=== PATIENT | female | born 1965 | race Caucasian/White ===

== ENCOUNTER 2016-09-18 10:49 | Emergency (ER) | payer BC ==
[~2016-09-18] VITALS: Ht 160 cm; Wt 75.3 kg
[2016-09-18 11:00] VITALS: TEMP 98.5; Ht 160 cm; Wt 75.3 kg
[2016-09-18] MEDS ORDERED: FLUO-137 PO (11:10)
[2016-09-18] MEDS ORDERED: IBUP-1724 PO (11:10)
[2016-09-18] MEDS ORDERED: [UNRECOGNIZED DRUG - CODE] PO (11:17)
[2016-09-18] MEDS ORDERED: hormone replacement PO (11:24)
--- NOTE | 2016-09-18 11:46 | ERPDOC ---
Departure Disposition Decision Date: Sep 18, 2016 Disposition Decision Time: 12:37 Disposition: 01 DISCHARGED HOME, SELF-CARE Impression Impression Impression: Primary Impression: Concussion Encounter type: initial encounter Loss of consciousness presence/duration: without LOC Qualified Codes: S06.0X0A - Concussion without loss of consciousness, initial encounter Severity: Moderate Condition: Stable Seen By: Physician only Referrals: (Family) Patient Instructions: Concussion (ED) Problems/Meds/Labs Reviewed?: Yes Medications reviewed and manag: Yes Departure Forms: Return to Work/School Permit Return to Work/School Date: Sep 19, 2016 Follow up care ordered?: Yes Mental Status: Alert, Oriented HPI - Fall/Injury General Chief Complaint: Fall Stated Complaint: PT FELL OFF HORSE, HEAD TRAUMA Time Seen by Provider: 11:46 Source: patient, family Exam Limitations: no limitations HPI - Fall/Injury Initial Comments Patient is a 51-year-old female presents emergency primary for evaluation of dizziness, fall off a horse. Patient this weekend was riding a horse on Saturday , strep was loose patient lost the stirrups and slid sideways off the horse landing on the top of her head. Patient had possible loss of consciousness was altered afterwards however did improve. Patient has been doing well no headache , however today developed significant dizziness at work, family became concerned so brought patient to the ER for evaluation. Patient's currently having no nausea no vomiting no headache no vision changes. Occurred At: home Onset: Rapid Duration: other (3 days) Pain Scale: Now & Worst: 0/10 Injuries/Pain Location: head Context: lost balance Loss of Consciousness: brief (seconds) Allergies: Coded Allergies: No Known Allergies (Unverified , 09/18/16) Past History Past Medical History Pt denies signifigant H Surgical History Reproductive/: Social History Smoking Status: Never smoker Substance Use Type: does not use Alcohol Intake: none Review of Systems Constitutional Constitutional: dizziness, DENIES: appetite decrease, chills, fever, weakness Eyes Vision: DENIES: blurring, double vision, loss of visual calvillo ENMT Sinuses: DENIES: congestion, rhinorrhea Mouth/Throat: DENIES: scratchy throat, sore throat Cardiovascular Cardiac: DENIES: chest pain, dyspnea on exertion Pulmonary Respiratory: DENIES: cough, dyspnea, sputum, tachypnea GI Upper Abdomen: DENIES: nausea, pain, vomiting Lower Abdomen: DENIES: constipation, diarrhea, pain General: DENIES: frequency, urgency Musculoskeletal General: DENIES: cramps, pain, weakness Integumentary Skin: DENIES: color change, itching, rash Neurological General: DENIES: change in strength, headache, numbness, weakness Psychiatric Psychiatric: DENIES: anxiety, emotional instability, irritability Endocrine Endocrine: DENIES: heat/cold intolerance Hematologic/Lymphatic Hematologic/Lymphatic: DENIES: anemia Physical Exam General General Nourishment: well nourished, well developed General Body Habitus: well groomed Vitals and Pain First Documented Vital Signs Date Time Temp Pulse Resp B/P Pulse Ox O2 Delivery O2 Flow Rate FiO2 09/18/16 11:00 98.5 76 16 127/83 97 Room Air Weight: Kilograms: 75.300 Height (feet): 5 Height (inches): 3.00 Triage Pain Scale: RN VS reviewed by Provider: Yes Eyes (brief) Eyes Brief: found: EOMI, PERRL ENMT (brief) ENMT Brief: FOUND: mucosa moist, normal dentition, NOT FOUND: nasal erythema, pharnyx erythema, tonsillar deviation Neck (brief) Neck: NOT FOUND: adenopathy, spasm, tenderness Respiratory (brief) Respiratory: FOUND: clear all cal[place], equal bilaterally, NOT FOUND: rales, wheezes Cardiovascular (brief) Cardiac: FOUND: regular rate, regular rhythm Capillary Refill: <2 sec Abdomen (brief) Abdominal Brief: FOUND: bowel normo active x4, soft, NOT FOUND: tender Lymphatic (brief) Lymphatic Brief: NOT FOUND: adenopathy Musculoskeletal (brief) Musculoskeletal Brief: NOT FOUND: spasm, tenderness Integumentary (brief) Integumentary Brief: FOUND: dry, pink, warm, NOT FOUND: rash Neurologic Mental Status: FOUND: alert, oriented GCS Adult : GCS Eye Opening: (4)Spontaneous GCS Verbal: (5)Oriented GCS Motor: (6)Obeys Commands GCS Total: 15 Cranial Nerves: FOUND: other (cranial nerves II through XII intact) Motor : Motor Side: bilateral Motor Location: biceps, triceps, wrist, finger extensors, finger flexors, quadriceps, hamstring, foot extension, foot flexion, tool polisher strength Motor Degree: 5 Sensation: FOUND: soft touch intact x4 ext DTR's : DTR Side: bilateral DTR Location: Biceps, Patellar DTR Grade: 2+ Psychiatric (brief) Psychiatric Brief: FOUND: alert, oriented Differential Diagnoses Considering: Concussion, Contusion, Epidural Hematoma, Dislocation, Fracture, Subdural Hematoma Progress Results/Orders Orders Procedure Category Date Status Time Ondansetron Odt PHA 09/18/16 Complete (Zofran Odt) 12:00 Ct Head W/O Contrast CT 09/18/16 Resulted 11:53 Medications Current ED Medications Ondansetron HCl (Zofran Odt) 4 mg O ONCE PO ; Start 09/18/16 at 12:00; Stop at 12:01; Status DC CT CT : CT: Head no contrast Interpretation: Normal, Reviewed Written Report STEPHANIE FLANAGAN MD Sep 18, 2016 11:46
[2016-09-18] MEDS ORDERED: ONDANSETRON ODT 4 MG TAB PO ONE (12:00)
--- NOTE | 2016-09-18 12:31 | DI ---
Indication: ITS.REASON: fall from horse headache nausea, possible loss of consciousness PROCEDURE: CT HEAD W/O CONTRAST: Encounter: Initial Comparison: None Technique: Axial CT images through the head were performed without contrast. Iterative Reconstruction dose reducing technique was utilized. FINDINGS: The ventricles are of normal size, shape, and configuration for the patient's age. There is no evidence of acute intracranial hemorrhage, midline displacement, or mass effect. There are scattered areas of low attenuation in the white matter which most likely represent changes of chronic microvascular ischemia. The CT attenuation of the brain parenchyma is otherwise normal within the cerebellum, brain stem, and cerebral hemispheres. The tympanic cavities and mastoid air cells are free of appreciable disease. There are no definite fractures of the skull base, calvarium, or visualized portion of the midface. Small benign osteomas noted incidentally in the left anterior and middle ethmoid air cells. IMPRESSION: No CT evidence of acute traumatic intracranial injury. .
[2016-09-18 12:45] VITALS: BP 126/69; PULSE 70; RESP 16; O2SAT 96
== END 2016-09-18 12:50 | disposition home or self-care (01) ==
LOC: ED 10:49
DX: S06.0X0A Concussion without loss of consciousness, initial encounter (principal); V80.010A Animal-rider injured by fall from or being thrown from horse in noncollision accident, initial encounter; Y93.52 Activity, horseback riding; Y92.008 Other place in unspecified non-institutional (private) residence as the place of occurrence of the external cause; Y99.8 Other external cause status